=== PATIENT | female | born 1985 | race Caucasian/White ===

== ENCOUNTER 2017-03-26 01:16 | Outpatient (CLI) | payer OTHER ==
--- NOTE | 2017-03-26 13:47 | XRAY Report ---
THREE VIEW RIGHT FOOT: 03/26/2017 CLINICAL INDICATION: Pain. FINDINGS: AP, lateral, and oblique views of the right foot demonstrate no evidence of fracture or di slocation. The joint spaces are preserved. No radiopaque foreign body is seen in the soft tissues. IMPRESSION: NORMAL RIGHT FOOT. JOB #: [id number] EXT JOB #:[id number]
== END 2017-03-26 01:17 | disposition home or self-care (01) ==
LOC: DI 01:16
PROVIDERS: ATTEND Obstetrics & Gynecology
DX: M79.671 Pain in right foot (principal)

== ENCOUNTER 2020-03-22 19:45 | Outpatient (CLI) | payer OTHER | END 2020-03-22 23:59 | disposition home or self-care (01) | LOC: LAB.R 19:45 | PROVIDERS: ATTEND Emergency Medicine | DX: J06.9 Acute upper respiratory infection, unspecified (principal); Z20.828 Contact with and (suspected) exposure to other viral communicable diseases ==

== ENCOUNTER 2020-03-23 18:01 | Outpatient (CLI) | payer OTHER ==
[2020-03-23] MEDS ORDERED: IOVERSOL 320 100 ML VIAL IVP ONE ×2 (18:13→19:45)
[2020-03-23] MEDS ORDERED: IOVERSOL 320 50 ML VIAL ONE (18:13)
[2020-03-23] MEDS ORDERED: IOVERSOL 320 50 ML VIAL PO ONE (19:45)
--- NOTE | 2020-03-24 10:37 | CT Report ---
PROCEDURE: Abdomen/Pelvis W INDICATIONS: ABD PX CONTRAST: IV CONTRAST: Optiray 320 ml: 100 PO CONTRAST: Optiray 320 ml50 TECHNIQUE: After the administration of nonionic contrast, 5 mm thick sections acquired from the diaphragms to th e symphysis. 5 mm thick coronal and sagittal reformats were acquired. For radiation dose reduction, the following was used: automated exposure control, adjustment of mA and/or kV according to patient size. COMPARISON: 12/23/[address] FINDINGS: Image quality: Excellent. ABDOMEN: Lung bases: Lung bases are clear. Heart size is normal. Solid organs: Liver and spleen are normal in size and enhancement. Gallbladder Biliary system is non dilated. Pancreas enhances normally. No adrenal nodules. Kidneys demonstrate normal size an d enhancement, without hydronephrosis. Peritoneum and bowel: Bowel loops demonstrate normal wall thickness and caliber. No free fluid or a ir. Nodes and vessels: No retroperitoneal or mesenteric adenopathy by size criteria. Aorta and inferior vena cava are normal in size. Miscellaneous: No ventral hernias. Right-sided colonic obstipation. PELVIS: Genitourinary: Bladder wall thickness is normal. Anteverted uterus, IUD centrally positioned within . Miscellaneous: No inguinal hernias or adenopathy. Right-sided colonic obstipation. Bones: No suspicious bony lesions. No vertebral body compression fractures. IMPRESSION: A definite source of abdominal pain is not identified. There is asymmetric right-sided p redominant colonic obstipation incidentally noted. Centrally positioned IUD. Reviewed by: Rah Strong MD on 03/24/2020 10:36 AM PDT Approved by: Rah Strong MD on 03/24/2020 10:36 AM PDT Station ID: [id number]
== END 2020-03-23 18:02 | disposition home or self-care (01) ==
LOC: DI 18:01
PROVIDERS: ATTEND Family Medicine
DX: R10.9 Unspecified abdominal pain (principal); Z97.5 Presence of (intrauterine) contraceptive device
CPT/HCPCS: 74177; Q9967

== ENCOUNTER 2021-05-02 08:18 | Outpatient (CLI) | payer OTHER ==
--- NOTE | 2021-05-02 16:22 | XRAY Report ---
PROCEDURE: Chest 2 View X-Ray INDICATIONS: PAIN TECHNIQUE: 2 view(s) of the chest. COMPARISON: None. FINDINGS: Surgical changes and devices: None. Lungs and pleura: No pleural effusions or pneumothorax. Lungs are clear. Mediastinum: Mediastinal contours are normal. Heart size is normal. Bones and chest wall: No suspicious bony abnormalities. Soft tissues appear unremarkable. IMPRESSION: No acute pulmonary process. Reviewed by: Kathia Kaur MD on 05/02/2021 4:20 PM [facility] Approved by: Kathia Kaur MD on 05/02/2021 4:20 PM [facility] Station ID: [id number]
== END 2021-05-02 08:19 | disposition home or self-care (01) ==
LOC: DI.N 08:18
PROVIDERS: ATTEND Family Medicine
DX: R09.1 Pleurisy (principal)

== ENCOUNTER 2021-10-28 10:28 | Emergency (ER) | payer OTHER ==
[2021-10-28 10:38] VITALS: BP 116/77
[2021-10-28] MEDS ORDERED: KETOROLAC 60 MG/2 ML VIAL IM STA (11:03)
[2021-10-28] MEDS ORDERED: DEXAMETHASONE 10 MG/ML VIAL PO STA (11:03)
[2021-10-28] MEDS ORDERED: CHERRY SYRUP 10 ML UDC PO ONE (11:03)
--- NOTE | 2021-10-28 11:05 | ED Physician Documentation ---
PD HPI BACK PAIN - Stated complaint Stated Complaint: BACK PX - Chief complaint Chief Complaint: Back Pain - History obtained from History obtained from: Patient, Family - History of Present Illness Timing - onset: How many days ago (2) Timing - duration: Days (2) Timing - details: Abrupt onset, Still present Location: Lower Quality: Pain, Spasm, Sharp Associated symptoms: No: Fever, Weakness, Numbness, Incontinent of urine, Unable to urinate, Hematuria, Incontinent of stool Improves with: Rest, Position, Meds Worsened by: Movement, Other (standing) Contributing factors: Other (wearing beltran boots for 90 minutes prior to onset) Similar symptoms before: Has not had sx before Recently seen: Not recently seen - Additional information Additional information: Previously well 36-year-old female presents to the emergency department this morning with acute lower lumbar pain. She states that 2 nights ago she went out wearing some high boots and when she went to get out of the car she felt a sudden pain in her back and this is stayed persistent. She did use some tizanidine yesterday felt that this helped a bit with her sleep felt a bit better this morning but when she got up to walk around she has a knot of pain in her lower back. She usually has some back pain in her upper back where she carries her stress and this is not bothering her now. She has not recently been ill. She denies any change in her bowel or bladder denies any sensation changes or radiation of pain. Review of Systems Constitutional: denies: Fever Ears: denies: Ear pain Nose: denies: Congestion Respiratory: denies: Cough GI: denies: Vomiting, Diarrhea Musculoskeletal: reports: Back pain. denies: Neck pain, Extremity pain Neurologic: denies: Generalized weakness, Focal weakness, Numbness PD PAST MEDICAL HISTORY - Past Medical History Past Medical History: No - Past Surgical History Past Surgical History: Yes - Present Medications Home Medications: Ambulatory Orders Medication Instructions Recorded Confirmed Metoclopramide [Reglan] 5 mg PO Q6H 12/23/12 12/23/12 Cyclobenzaprine [Flexeril] 10 mg PO TID PRN #20 tablet 10/28/21 HYDROcod/ACETAM 5/325 [[place] 5/325] 1 - 2 tablet PO Q6H PRN #14 tablet 10/28/21 Lidocaine Patch 5% [Lidoderm Patch] 1 patch TOP DAILY PRN #10 patch 10/28/21 - Allergies Allergies/Adverse Reactions: Allergies Allergy/AdvReac Type Severity Reaction Status Date / Time morphine AdvReac Nausea Verified 10/28/21 10:38 - Social History Does the pt smoke?: No Smoking Status: Never smoker Does the pt drink ETOH?: No Does the pt have substance abuse?: No - Immunizations Immunizations are current?: Yes - POLST Patient has POLST: No PD ED PE NORMAL - Vitals Vital signs reviewed: Yes - General General: Alert and oriented X 3, No acute distress, Well developed/nourished, Other (pleasant 36 y/o female standing in the exam room ) - HEENT HEENT: Atraumatic, PERRL, EOMI - Respiratory Respiratory: No respiratory distress - Back Back: No CVA TTP, No spinal TTP, Other (The pain is centered around the L/S junction and is non-tender to palpation. 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, No motor deficit, No sensory deficit, Normal speech Eye Opening: Spontaneous Motor: Obeys Commands Verbal: Oriented GCS Score: 15 - Psych Psych: Normal mood, Normal affect Results - Vitals Vitals: Vital Signs - 24 hr 10/28/21 10:35 Temperature 36.5 C Heart Rate 88 Respiratory 16 Rate Blood Pressure 116/77 O2 Saturation 98 Oxygen O2 Source Room air PD MEDICAL DECISION MAKING - ED course Complexity details: reviewed old records, considered differential, d/w patient, d/w family ED course: 36-year-old female with acute lower lumbar pain that appears to be related to wearing excessively high boots has been using a heating pack she has not had relief of her pain. She has no lateralizing signs and no signs of cauda equina. In the emergency department she is administered dexamethasone and Toradol and we will provide some pain medication a muscle relaxant. Departure - Departure Disposition: 01 Home, Self Care Clinical Impression: Lumbar strain Qualifiers: Encounter type: initial encounter Qualified Code(s): S39.012A - Strain of muscle, fascia and tendon of lower back, initial encounter Condition: Stable Instructions: ED Spasm Back No Trauma Follow-Up: Chao Ann DO [Primary Care Provider] - Prescriptions: Cyclobenzaprine [Flexeril] 10 mg PO TID PRN #20 tablet PRN Reason: Spasms Lidocaine Patch 5% [Lidoderm Patch] 1 patch TOP DAILY PRN #10 patch PRN Reason: pain HYDROcod/ACETAM 5/325 [[place] 5/325] 1 - 2 tablet PO Q6H PRN #14 tablet PRN Reason: Pain Comments: Chloe today it looks like you have some spasm in your lower lumbar spine likely related to abnormal positioning with your high-heeled boots and we are providing some pain medication a muscle relaxant to use at night. My recommendation is to use ice and stretch to your back and avoid using the heating pack as sometimes this can make the recovery prolonged. I have E scribed your medications to [facility] in [place]. Discharge Date/Time: 10/28/21 11:16
== END 2021-10-28 11:16 | disposition home or self-care (01) ==
LOC: ED 10:28
DX: S39.012A Strain of muscle, fascia and tendon of lower back, initial encounter (principal); X58.XXXA Exposure to other specified factors, initial encounter
CPT/HCPCS: 96372; 99282; 99283; A9270

== ENCOUNTER 2023-06-10 09:01 | Outpatient (CLI) | payer OTHER ==
--- NOTE | 2023-06-11 08:12 | Ultrasound Report ---
LIMITED ULTRASOUND OF RIGHT BREAST: 06/10/2023 CLINICAL: Palpable right breast lump. No prior exams were available for comparison. Color flow ultrasound of the right breast 10 o'clock region was performed. Flynn scale images of the real-time examination were reviewed. No significant abnormalities were seen sonographically in the right breast. Specifically, no finding to correspond to the patient's palpable abnormality. IMPRESSION: NEGATIVE There is no sonographic correlate to the patient's palpable abnormality and no evidence of malignancy . Return to annual mammogram screening schedule is recommended. Findings and recommendations were conveyed to the patient at time of exam. This exam was interpreted at Station ID: [id number]. Electronically Signed By: Chloe dumont/:06/10/2023 10:05:00 letter sent: No_Letter Ultrasound BI-RADS: 1 Negative BI-RADS CATEGORY: (1) - 1 RECOMMENDATION: (ANNUAL) - Recommend routine annual screening mammography. [id number] return to screening LATERALITY: (B)
--- NOTE | 2023-06-11 08:12 | Mammography Report ---
BILATERAL DIGITAL DIAGNOSTIC MAMMOGRAM 3D/2D WITH AUGMENTATION: 06/10/2023 CLINICAL: Baseline exam. Palpable right breast lump. No prior exams were available for comparison. There are scattered areas of fibroglandular density in both breasts (category b / 25%-50% glandular t issue). Bilateral subpectoral silicone implants are present. No significant masses, calcifications, or other findings are seen in either breast. Specifically, no finding to correspond to the patient's palpable abnormality abnormality. IMPRESSION: INCOMPLETE: NEEDS ADDITIONAL IMAGING EVALUATION Bilateral mammograms are normal. Breast implants are present. There is no abnormality seen in the right breast to correspond with the palpable abnormality at 9 o'c lock. Ultrasound is recommended for full evaluation of this area. This was performed immediately following this exam. Based on the Tyrer Cuzick model (a risk assessment model) the patients lifetime risk is 7.4% and her 10 year risk is 0.9%. According to the ACR, ACS, and NCCN guidelines, an annual breast MRI exam richard g with mammogram is recommended if the patients lifetime risk is 20% or greater. This exam was interpreted at Station ID: [id number]. NOTE: For mammograms, a report in lay terms will be sent to the patient. Approximately 15% of breast malignancies will not be visualized mammographically. In the management of a palpable breast mass, a negative mammogram must not discourage biopsy of a clinically suspicious lesion. Electronically Signed By: Chloe dumont/:06/10/2023 09:49:57 ACR BI-RADS Category 0: Incomplete 3340F PARENCHYMAL PATTERN: (A) - The breast(s) demonstrate(s) scattered fibroglandular densities. BI-RADS CATEGORY: (0) - 0 Ultrasound [id number] Immediate follow-up LATERALITY: (B)
== END 2023-06-10 09:02 | disposition home or self-care (01) ==
LOC: DI 09:01
PROVIDERS: ATTEND Family Medicine
DX: N63.11 Unspecified lump in the right breast, upper outer quadrant (principal); R92.323 Mammographic fibroglandular density, bilateral breasts; Z98.82 Breast implant status